=== PATIENT | male | born 2000 | race African-American/Black ===

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

== ENCOUNTER 2023-06-23 13:44 | Emergency (ER) | payer OTHER ==
[~2023-06-23] VITALS: Ht 160 cm; Wt 99.7 kg
[2023-06-23 13:49] VITALS: BP 148/62; PULSE 99; RESP 16; TEMP 98.2; O2SAT 100
[2023-06-23] MEDS ORDERED: BACITRACIN ZINC OINT UDPKT TOP ONE (15:00)
[2023-06-23] MEDS ORDERED: LIDOCAINE HCL/PF 1% 10 MG/ML 5ML VIAL INFIL ONE (15:00)
== END 2023-06-23 16:11 | disposition home or self-care (01) ==
LOC: ER 13:44
DX: S61.211A Laceration without foreign body of left index finger without damage to nail, initial encounter (principal); X58.XXXA Exposure to other specified factors, initial encounter; Y93.89 Activity, other specified; Y92.89 Other specified places as the place of occurrence of the external cause; Y99.8 Other external cause status
CPT/HCPCS: 12002; 99282